=== PATIENT | male | born 1960 | race Caucasian/White ===

== ENCOUNTER → 2016-11-01 | Outpatient (CLI) | payer OTHER ==
--- NOTE | 2016-11-01 11:49 | RAD ---
Right lower extremity venous Doppler ultrasound History: Right lower extremity swelling since October 23, 2016. Right lower extremity erythema. Comparison: None. Procedure: Color Doppler, spectral Doppler, and grayscale images are obtained with and without compression in the area of the common femoral vein, superficial femoral vein - femoral vein junction, main femoral vein (superficial femoral vein) and popliteal vein. Veins of the proximal calf are also imaged. Findings: There is normal duplex flow, color flow and compressibility of all visualized vein segments. No evidence of deep venous thrombosis is present. Grayscale imaging demonstrates enlarged lymph nodes involving bilateral inguinal regions. Impression: 1. No evidence of right lower extremity deep venous thrombosis. 2. Bilateral inguinal lymphadenopathy, nonspecific. These might be reactive. Recommend clinical correlation.
== END | disposition home or self-care (01) ==
LOC: US 10:15
PROVIDERS: ATTEND Physician Assistant
DX: R59.1 Generalized enlarged lymph nodes (principal); R60.0 Localized edema; M79.89 Other specified soft tissue disorders
CPT/HCPCS: 93971

== ENCOUNTER → 2016-11-29 | Outpatient (CLI) | payer OTHER ==
[2016-11-29 08:27] LABS: ALBUMIN 3.2 g/dL (3.4-5.0); ALBUMIN/GLOBULIN RATIO 0.9 (1.0-1.7); CALCIUM 8.4 mg/dL (8.5-10.1); CREATININE 1.1 mg/dL (0.7-1.3); POTASSIUM 3.8 mmol/L (3.5-5.1); TOTAL PROTEIN 6.9 g/dL (6.4-8.2)
--- NOTE | 2016-11-29 14:11 | CARD ---
APPROVED REPORT EXAM: Two-dimensional and M-mode echocardiogram with Doppler and color Doppler. Other Information Quality : FairHR: 72bpm Rhythm : NSR INDICATION Lower extremity edema. RISK FACTORS Obesity Smoking 2D DIMENSIONS RVDd4.1 (2.9-3.5cm)Left Atrium(2D)4.1 (1.6-4.0cm) IVSd0.9 (0.7-1.1cm)Aortic Root(2D)4.1 (2.0-3.7cm) LVDd5.4 (3.9-5.9cm)LVOT Diameter2.5 (1.8-2.4cm) PWd1.0 (0.7-1.1cm)LVDs3.1 (2.5-4.0cm) FS (%) 43.1 %SV105.6 ml LVEF(%)73.7 (>50%) Aortic Valve AoV Peak Tucker.99.7cm/sAoV VTI20.6cm AO Peak GR.4.0mmHgLVOT Peak Tucker.85.0cm/s LVOT VTI 19.07cmAO Mean GR.2mmHg DOMINIQUE (VMAX)4.49ej3JAH (VTI)4.66cm2 Mitral Valve MV E Ctwrmusc60.3cm/sMV E Peak Gr.2mmHg MV DECEL [id number] A Hruaxxea58.8cm/s MV E Mean Gr.1mmHgE/A Ratio0.8 MV A Arjtrcsb894id Pulmonary Valve PV Peak Hebgslcv66.4cm/sPV Peak Grad.2mmHg Tricuspid Valve TR P. Xbhokrir209sr/sTR Peak Gr.29mmHg Pulmonary Vein S1 Axlqlxaq60.1cm/sD2 Dsqrgkfb86.7cm/s LEFT VENTRICLE The left ventricle is normal size. There is normal left ventricular wall thickness. The left ventricu lar systolic function is normal and the ejection fraction is within normal range. The Ejection Fracti on is 55-60%. There is normal LV segmental wall motion. Transmitral Doppler flow pattern is Grade I-a bnormal relaxation pattern. No left ventricle thrombus noted on this study. RIGHT VENTRICLE The right ventricle is mildly dilated. There is normal right ventricular wall thickness. The right ve ntricular systolic function is normal. ATRIA The left atrium is mildly dilated. The right atrium is mildly dilated. The interatrial septum is inta ct with no evidence for an atrial septal defect or patent foramen ovale as noted on 2-D or Doppler im aging. AORTIC VALVE The aortic valve is mildly sclerotic. The aortic valve is trileaflet. Doppler and Color Flow revealed no significant aortic regurgitation. There is no significant aortic valvular stenosis. MITRAL VALVE Mitral annular calcification is mild. The mitral valve leaflets are thickened. There is no evidence o f mitral valve prolapse. There is no mitral valve stenosis. Doppler and Color Flow revealed no mitral valve regurgitation noted. TRICUSPID VALVE Doppler and Color Flow revealed mild tricuspid regurgitation. The pulmonary artery systolic pressure is estimated at 32 mmHg. PULMONIC VALVE Doppler and Color Flow revealed no pulmonic valvular regurgitation. There is no pulmonic valvular hodan nosis. GREAT VESSELS The aortic root is mildly enlarged. The ascending aorta is normal in size. The pulmonary artery is no rmal. The IVC is normal in size and collapses >50% with inspiration. PERICARDIAL EFFUSION There is no evidence of significant pericardial effusion. Critical Notification Critical Value: No <Conclusion> The left ventricular systolic function is normal and the ejection fraction is within normal range. Th e Ejection Fraction is 55-60%. There is normal LV segmental wall motion.
--- NOTE | 2016-11-29 16:03 | RAD ---
APPROVED REPORT Patient Location : OUT-PATIENT Indications August scale images of the right and left greater and lesser saphenous veins were obtained. On limited imaging there is no evidence of thrombus. The right great saphenous vein measures 9 mm and does not show any evidence of reflux. The left great saphenous vein measures 9.3 mm and does not show any evidence of reflux. The bilateral lesser saphen ous veins do not show any evidence of reflux. Critical Notification Critical Value: No <Conclusion> Negative for reflux in the bilateral greater and lesser saphenous veins.
== END | disposition home or self-care (01) ==
LOC: ECHO 07:43
PROVIDERS: ATTEND Internal Medicine Cardiovascular Disease
DX: I50.31 Acute diastolic (congestive) heart failure (principal); M79.89 Other specified soft tissue disorders; I07.1 Rheumatic tricuspid insufficiency
CPT/HCPCS: 36415; 80053; 93306; 93970

== ENCOUNTER → 2017-04-10 | Outpatient (CLI) | payer OTHER ==
--- NOTE | 2017-04-10 17:23 | RAD ---
Right leg venous Doppler study: Clinical indications: Right leg swelling and pain. Findings: Duplex sonography (including byrnes scale evaluation and color flow and waveform spectral analysis) of the proximal aspect of the greater saphenous vein and proximal aspect of the profunda femoral vein and the entire length of the common femoral and superficial femoral and popliteal veins and the tibioperoneal trunk and the proximal aspect of the posterior tibial and peroneal veins of the right leg was performed. Normal compressibility, augmentation of color Doppler flow after calf compression, and respiratory variation of Doppler flow is seen. Thus, there are no sonographic findings of deep venous thrombosis within these veins. Impression: There are no sonographic findings of deep venous thrombosis within the veins discussed above of the right lower extremity. There is a 6.2 centimeter in length right groin lymph node. Recommend clinical correlation and follow-up. Enlarged lymph nodes or seen on a previous right lower extremity venous duplex examination dated November 01, 2016. The largest lymph node at that time measured 5.2 cm. This could be secondary to cellulitis. However, lymphoma has not been excluded.
[2017-04-10 18:01] LABS: ALBUMIN 3.1 g/dL (3.4-5.0); ALBUMIN/GLOBULIN RATIO 0.7 (1.0-1.7); CREATININE 1.1 mg/dL (0.7-1.3); TOTAL BILIRUBIN 1.4 mg/dL (0.2-1.0); TOTAL PROTEIN 7.3 g/dL (6.4-8.2)
[2017-04-10 18:42] LABS: BASO # 0.6 x10^3/uL (0.0-0.2); BASO % 5 % (0-3); EOS # 0.2 x10^3/uL (0.0-0.7); EOS % 1 % (0-3); HEMATOCRIT 46.3 % (39.0-53.0); HEMOGLOBIN 15.8 g/dL (13.0-17.5); LYMPH # 1.3 x10^3/uL (1.0-4.8); LYMPH % 10 % (24-48); MEAN CORPUSCULAR HEMOGLOBIN 34 pg (25-35); MEAN CORPUSCULAR HGB CONC 34 g/dL (31-37); MEAN CORPUSCULAR VOLUME 101 fL (79-100); MONO # 1.8 x10^3/uL (0.0-1.1); MONO % 14 % (0-9); NEUT % 70 % (31-73); PLATELET COUNT 225 x10^3/uL (140-400); RED BLOOD COUNT 4.59 x10^6/uL (4.30-5.70); RED CELL DISTRIBUTION WIDTH 12.8 % (11.5-14.5); WHITE BLOOD COUNT 12.8 x10^3/uL (4.0-11.0)
[2017-04-10 20:24] LABS: SEDIMENTATION RATE 46 (0-15)
== END | disposition home or self-care (01) ==
LOC: US 16:34
PROVIDERS: ATTEND Nurse Practitioner Family
DX: M79.604 Pain in right leg (principal); R60.0 Localized edema; M79.89 Other specified soft tissue disorders
CPT/HCPCS: 36415; 80053; 85025; 85651; 93971

== ENCOUNTER → 2017-04-13 | Outpatient (CLI) | payer OTHER ==
[~2017-04-13] MED LIST: IOHEXOL 300 MG/ML 75 ML VIAL. IV ONE
--- NOTE | 2017-04-13 16:17 | RAD ---
EXAM: CT right leg with contrast. HISTORY: Cellulitis, fluid collections in right calf. Lymphadenopathy. TECHNIQUE: CT of the right lower chest was performed after intravenous contrast. COMPARISON: Ultrasound 04/10/2017. FINDINGS: There is extensive subcutaneous edema beginning along the distal thigh and becoming severe throughout the right calf and visualized foot. No discrete fluid collection is identified. There is no clear involvement of deeper compartments. Small scattered calcifications along the scan likely represent tiny phleboliths or other benign soft tissue calcifications. Enlarged right inguinal lymph nodes are likely reactive in this setting. The largest measures 4.0 x 2.0 cm. The deep veins appear patent by this technique. Bone windows reveal no suspicious lesions. A lucent focus within the right ischium proximally most likely represents a hemangioma. IMPRESSION: 1. Extensive subcutaneous edema extending from the distal thigh through the visualized foot. No discrete fluid collection by CT. 2. Right inguinal lymphadenopathy is likely reactive in the setting. One or more of the following individualized dose reduction techniques were utilized for this examination: 1. Automated exposure control. 2. Adjustment of the mA and/or kV according to patient size. 3. Use of iterative reconstruction technique.
== END | disposition home or self-care (01) ==
LOC: CT 15:11
PROVIDERS: ATTEND Family Medicine
DX: L03.115 Cellulitis of right lower limb (principal); R59.0 Localized enlarged lymph nodes; R60.9 Edema, unspecified
CPT/HCPCS: 73701; Q9967

== ENCOUNTER → 2017-08-01 | Outpatient (CLI) | payer OTHER ==
[2017-08-01 16:37] LABS: ALBUMIN 3.4 g/dL (3.4-5.0); ALBUMIN/GLOBULIN RATIO 0.8 (1.0-1.7); CALCIUM 9.1 mg/dL (8.5-10.1); CREATININE 1.2 mg/dL (0.7-1.3); GFR 62.4; POTASSIUM 3.6 mmol/L (3.5-5.1); TOTAL BILIRUBIN 1.1 mg/dL (0.2-1.0); TOTAL PROTEIN 7.7 g/dL (6.4-8.2)
== END | disposition home or self-care (01) ==
LOC: LAB 15:20
PROVIDERS: ATTEND Internal Medicine Cardiovascular Disease
DX: I50.31 Acute diastolic (congestive) heart failure (principal)
CPT/HCPCS: 36415; 80053; 83880

== ENCOUNTER → 2017-10-11 | Outpatient (CLI) | payer OTHER ==
[2017-10-11 16:23] LABS: CALCIUM 8.6 mg/dL (8.5-10.1); CREATININE 1.1 mg/dL (0.7-1.3); GFR 68.8
[2017-10-11 16:27] LABS: POTASSIUM 2.8 mmol/L (3.5-5.1)
== END | disposition home or self-care (01) ==
LOC: LAB 15:43
PROVIDERS: ATTEND Internal Medicine Cardiovascular Disease
DX: I87.2 Venous insufficiency (chronic) (peripheral) (principal); I50.31 Acute diastolic (congestive) heart failure
CPT/HCPCS: 36415; 80048

== ENCOUNTER → 2017-10-16 | Outpatient (CLI) | payer OTHER ==
[2017-10-16 16:22] LABS: CALCIUM 8.7 mg/dL (8.5-10.1); CREATININE 1.2 mg/dL (0.7-1.3); GFR 62.2; POTASSIUM 3.2 mmol/L (3.5-5.1)
== END | disposition home or self-care (01) ==
LOC: LAB 15:34
PROVIDERS: ATTEND Internal Medicine Cardiovascular Disease
DX: E87.6 Hypokalemia (principal)
CPT/HCPCS: 36415; 80048

== ENCOUNTER → 2018-02-21 | Outpatient (CLI) | payer OTHER ==
[2018-02-21 14:24] LABS: CREATININE 1.1 mg/dL (0.7-1.3); GFR 68.8; POTASSIUM 3.9 mmol/L (3.5-5.1)
== END | disposition home or self-care (01) ==
LOC: LAB 13:17
PROVIDERS: ATTEND Internal Medicine Cardiovascular Disease
DX: I87.2 Venous insufficiency (chronic) (peripheral) (principal); E87.6 Hypokalemia
CPT/HCPCS: 36415; 80048; 83880

== ENCOUNTER → 2021-03-09 | Outpatient (CLI) | payer BC, OTHER ==
--- NOTE | 2021-03-09 09:23 | RAD ---
EXAM: Abdomen sonogram. HISTORY: Abnormal liver enzyme laboratory values. TECHNIQUE: Sonographic imaging of the abdomen was performed. COMPARISON: None. FINDINGS: The liver is enlarged. There is hepatic steatosis. No focal hepatic lesion is seen. The com mon bile duct is normal in caliber. There is cholelithiasis. There is gallbladder wall thickening. Th e kidneys are normal in size. There is no solid or cystic renal lesion or hydronephrosis. The spleen is mildly enlarged. The pancreas, aorta and vena cava are obscured due to bowel gas and body habitus. IMPRESSION: 1. Hepatomegaly and hepatic steatosis. 2. Cholelithiasis. There is gallbladder wall thickening suggesting superimposed cystitis. This can al so be seen with intrinsic liver disease. Correlate with symptomatology. 3. Mild splenomegaly. 4. Obscured midline structures due to bowel gas and body habitus. Electronically signed by: Juju Rae MD (03/09/2021 9:21 AM) [id number]
--- NOTE | 2021-03-09 09:41 | RAD ---
EXAMINATION: CT chest without IV contrast INDICATION:60 years, Male, smoker for 45 years. COMPARISON: None TECHNIQUE: Low-dose CT scan of the chest with 3-D MIP coronal and sagittal reconstructions was acquir ed. Exposure: One or more of the following individualized dose reduction techniques were utilized for [facility] s examination: 1. Automated exposure control 2. Adjustment of the mA and/or kV according to patient size 3. Use of iterative reconstruction technique. Lung-RADS assessment categories: 0: Incomplete. Additional lung cancer screening CT images and/or comparison to prior chest CT examina tions is needed. 1: Negative. Continue annual screening with low dose CT (LDCT) in 12 months. 2: Benign appearance or behavior. Continue annual screening with LDCT in 12 months. 3: Probably benign. 6 month follow-up LDCT recommended. 4A: Suspicious. 3 month LDCT follow up, PET/CT may be used when there is ? 8mm (? 268 mm3) solid comp onent. 4B or 4X: Very Suspicious. Chest CT with or without contrast, PET/CT, and/or biopsy recommended. PET/ CT may be used when there is ? 8mm (? 268 mm3) solid component. For new large nodules that develop on an annual repeat screening CT, a 1 month LDCT may be recommended to address potentially infectious o r inflammatory conditions. Modifiers: S: Clinically significant or potentially clinically significant findings (non-lung cancer). Exposure: One or more of the following individualized dose reduction techniques were utilized for [facility] s examination: 1. Automated exposure control 2. Adjustment of the mA and/or kV according to patient size 3. Use of iterative reconstruction technique. FINDINGS: LUNGS/PLEURA: The pulmonary parenchyma appears within normal limits. No suspicious pulmonary nodules are visualized. No pleural effusion or focal pleural lesion. MEDIASTINUM: No pathologic mediastinal or hilar adenopathy. The thoracic aorta and pulmonary arteries are normal in caliber. The heart is normal in size. No pericardial effusion. Moderate coronary arter y atherosclerotic calcifications The visualized thyroid and the esophagus are unremarkable. AXILLA/SOFT TISSUE: No supraclavicular or axillary adenopathy. Regional soft tissues are within timoteo l limits. UPPER ABDOMEN: The visualized upper abdomen appears unremarkable, within the limitation of the exam. BONES: No evidence of acute fractures or aggressive osseous lesions. Excessive kyphosis of the thorac ic spine with chronic mild anterior compression fracture of T6, T7 and T8 vertebral bodies. Chronic d eformity of the lateral right fifth and sixth ribs. IMPRESSION: 1. Lung-RADS 1: Negative. Continue annual screening with low dose CT (LDCT) in 12 months. 2. Moderate coronary artery atherosclerotic calcifications. Electronically signed by: Payal Gonzalez MD (03/09/2021 9:39 AM) [id number]
== END ==
LOC: US 08:22
PROVIDERS: ATTEND Family Medicine
DX: Z12.2 Encounter for screening for malignant neoplasm of respiratory organs (principal); K80.20 Calculus of gallbladder without cholecystitis without obstruction; K76.0 Fatty (change of) liver, not elsewhere classified; R16.2 Hepatomegaly with splenomegaly, not elsewhere classified; R94.5 Abnormal results of liver function studies; I25.10 Atherosclerotic heart disease of native coronary artery without angina pectoris; Z72.0 Tobacco use
CPT/HCPCS: 71271; 76700

== ENCOUNTER → 2021-04-20 | Outpatient (CLI) | payer BC ==
[~2021-04-20] MED LIST changes: +IOHEXOL 240 MG/ML 50ML VIAL. ONE; +IOHEXOL 240 MG/ML 50ML VIAL. PO ONE
--- NOTE | 2021-04-20 09:55 | RAD ---
CT ABDOMEN+PELVIS W History: Left lower quadrant abdominal pain, diarrhea. Umbilical hernia repair one week ago. Comparison: CT chest 03/09/2021 Technique: CT of the abdomen and pelvis with oral and intravenous contrast. Findings: There is a new large left lower lobe airspace consolidation and partial consolidation in the left upp er lobe. Coronary artery calcifications. No pleural effusion. The liver is unremarkable. Calcified 1.9 cm gallbladder fundus stone. No biliary ductal dilatation. T he pancreas and adrenal glands are unremarkable. The spleen is at the upper limits of normal for size . A subcentimeter hypoattenuation in the right renal upper pole is too small to characterize, likely renal cyst. No hydronephrosis or nephrolithiasis. Mild left renal perinephric fat stranding. Mild thi ckening of the bladder wall is likely due to under distention. The prostate is not enlarged. Central prostatic calcifications. The stomach and small bowel are unremarkable. Contrast reaches the distal ileum. The appendix is norm al. The colon is within normal limits. Aortoiliac atherosclerotic calcification without aneurysm. The re are prominent retroperitoneal lymph nodes particularly along the left greater than right iliac jillian ins, includin cm short axis right external iliac lymph node (axial 71), 8 mm short axis left inte rnal inguinal ring lymph node (axial 79), 1 cm right external iliac lymph node (axial 70), and bilate ral 1.3 cm inguinal lymph nodes. Large partially visualized left inguinal hernia containing fat and small to moderate right fat-contai rohan inguinal hernia. Degenerative changes of the spine without acute osseous abnormality. Healed rig ht-sided rib fractures. Impression: 1. Large left lower lobe and small partially visualized left upper lobe airspace consolidations may represent pneumonia or aspiration. These are new from March comparison. 2. Large left and small to moderate right fat-containing inguinal hernias. 3. Prominent retroperitoneal and inguinal lymph nodes measuring up to 1 cm in the pelvis and 1.3 cm in the inguinal stations. Correlate for infectious or lymphoproliferative disorders. Consider tissue sampling or 3 month follow-up CT. ------ Exposure: One or more of the following individualized dose reduction techniques were utilized for thi s examination: 1. Automated exposure control 2. Adjustment of the mA and/or kV according to patient size 3. Use of iterative reconstruction technique. Electronically signed by: Mika Quick MD (04/20/2021 9:52 AM) [id number]
== END ==
LOC: RAD 08:10
PROVIDERS: ATTEND Family Medicine
DX: K40.20 Bilateral inguinal hernia, without obstruction or gangrene, not specified as recurrent (principal); K80.20 Calculus of gallbladder without cholecystitis without obstruction; I25.10 Atherosclerotic heart disease of native coronary artery without angina pectoris; R10.32 Left lower quadrant pain
CPT/HCPCS: 74177; Q9967

== ENCOUNTER → 2021-04-22 | Outpatient (CLI) | payer BC ==
--- NOTE | 2021-04-22 12:42 | RAD ---
EXAM: Chest, 2 views. HISTORY: Cough. COMPARISON: 04/20/2021. FINDINGS: 2 views of the chest are obtained. There is bilateral lower lobe interstitial infiltrate. N o pleural effusion or pneumothorax is seen. The heart is normal in size. IMPRESSION: Bilateral lower lobe interstitial infiltrate, not appreciably changed compared to the angelic or exam when allowing for differences in imaging modality. Electronically signed by: Juju Rae MD (04/22/2021 12:40 PM) [id number]
== END ==
LOC: RAD 12:22
PROVIDERS: ATTEND Family Medicine
DX: R91.8 Other nonspecific abnormal finding of lung field (principal); J69.0 Pneumonitis due to inhalation of food and vomit
CPT/HCPCS: 71046

== ENCOUNTER → 2021-08-31 | Outpatient (CLI) | payer BC ==
--- NOTE | 2021-08-31 12:29 | RAD ---
MR#: [id number] Date of Study: 08/31/2021 Ordering Physician: SARAH ROGERS, Referring Physician: SARAH ROGERS, Tech: Lizzie Sullivan RVT, [facility] APPROVED REPORT Patient Location : OUT-PATIENT Indications Stasis Disease Lower Extremity Edema : Skin Changes Grayscale images of the saphenofemoral junctions are notable for bilateral lymphadenopathy on the rig ht measuring 6.4 x 4.2 x 1.7 cm and on the left measuring 4.0 x 4.5 x 1.6 cm Limited grayscale images of the bilateral saphenofemoral venous junction does not reveal any obvious thrombus. The right great saphenous vein measures 5 mm and has no evidence of reflux. The left grea t saphenous vein measures 7 mm and has no evidence of reflux. The bilateral lesser saphenous veins also do not show any evidence of reflux Greater Saphenous Veins (GSV) Significant venous relux noted in the RIGHT GSV at the following levels : Superficial Femoral Junctio n Significant venous relux noted in the LEFT GSV at the following levels : Superficial Femoral Junction Lesser Saphenous Veins (LSV) Right Thigh extension noted : Yes Critical Notification Critical Value: No <Conclusion> 1. Negative for reflux in the bilateral greater and lesser saphenous veins 2. Abnormal bilaterally enlarged lymphadenopathy in the inguinal region, recommend further evaluatio n and clinical correlation. Signed by : Sarah Rogers, Electronically Approved : 08/31/2021 12:28:42
--- NOTE | 2021-09-16 08:51 | CARD ---
MR#: [id number] Account#: Date of Study: 08/31/2021 Ordering Physician: Kendall: Jean-Claude Matias RDCS APPROVED REPORT EXAM: Two-dimensional and M-mode echocardiogram with Doppler and color Doppler. Other Information Quality : FairHR: 82bpm Rhythm : NSR INDICATION Congestive Heart Failure RISK FACTORS Hypertension Obesity Hyperlipidemia Smoking 2D DIMENSIONS RVDd6.3 (2.9-3.5cm)Left Atrium(2D)4.3 (1.6-4.0cm) IVSd1.2 (0.7-1.1cm)Aortic Root(2D)3.9 (2.0-3.7cm) LVDd4.5 (3.9-5.9cm)LVOT Diameter2.3 (1.8-2.4cm) PWd1.2 (0.7-1.1cm)LA Rrgfdo042 (18-58mL) LVDs2.8 (2.5-4.0cm)FS (%) 37.5 % SV61.5 mlLVEF(%)67.7 (>50%) Aortic Valve AoV Peak Tucker.110.4cm/sAoV VTI22.2cm AO Peak GR.4.9mmHgLVOT Peak Tucker.85.1cm/s LVOT VTI 15.70cmAO Mean GR.3mmHg DOMINIQUE (VMAX)3.81wl9FVO (VTI)3.04cm2 Mitral Valve MV E Fmdsktnu96.3cm/sMV E Peak Gr.4mmHg MV DECEL [id number] A Cyesqfrb84.6cm/s MV E Mean Gr.2mmHgE/A Ratio0.8 Pulmonary Valve PV Peak Wfqoubzb99.6cm/sPV Peak Grad.2mmHg Tricuspid Valve TR P. Jraonsoy102nj/sTR Peak Gr.39mmHg Pulmonary Vein S1 Thcoxwfd48.7cm/sD2 Krftdnpu03.9cm/s LEFT VENTRICLE The left ventricle is normal size. There is mild concentric left ventricular hypertrophy. The left ve ntricular systolic function is normal and the ejection fraction is within normal range. EF 55% There is normal LV segmental wall motion. Transmitral Doppler flow pattern is Grade I-abnormal relaxation p attern. No left ventricle thrombus noted on this study. There is no ventricular septal defect visuali zed. There is no left ventricular aneurysm. There is no mass noted in the left ventricle. RIGHT VENTRICLE The right ventricle is moderately dilated. There is normal right ventricular wall thickness. The righ t ventricular systolic function is normal. ATRIA The left atrium is mildly dilated. The right atrium is moderately dilated. The interatrial septum is intact with no evidence for an atrial septal defect or patent foramen ovale as noted on 2-D or Dopple r imaging. AORTIC VALVE The aortic valve is thickened but opens well. Doppler and Color Flow revealed no significant aortic r egurgitation. There is no significant aortic valvular stenosis. There is no aortic valvular vegetatio n. MITRAL VALVE The mitral valve is normal in structure and function. There is no evidence of mitral valve prolapse. There is no mitral valve stenosis. TRICUSPID VALVE The tricuspid valve is normal in structure and function. Doppler and Color Flow revealed trace tricus pid regurgitation. The PA pressure was estimated at 46 mmHg. There is no tricuspid valve prolapse or vegetation. There is no tricuspid valve stenosis. PULMONIC VALVE Doppler and Color Flow revealed no pulmonic valvular regurgitation. There is no pulmonic valvular hodan nosis. GREAT VESSELS The aortic root is normal in size. The ascending aorta is normal in size. The IVC is mildly enlarged in size and collapses >50% with inspiration. PERICARDIAL EFFUSION There is no pleural effusion. There is no evidence of significant pericardial effusion. Critical Notification Critical Value: No <Conclusion> The left ventricular systolic function is normal and the ejection fraction is within normal range. EF 55% There is normal LV segmental wall motion. The right ventricle is moderately dilated. Doppler and Color Flow revealed trace tricuspid regurgitation. The PA pressure was estimated at 46 mm Hg. Signed by : Ck Rogers, Electronically Approved : 08/31/2021 13:50:40
== END ==
LOC: ECHO 07:56
PROVIDERS: ATTEND Internal Medicine Cardiovascular Disease
DX: I51.7 Cardiomegaly (principal); I35.1 Nonrheumatic aortic (valve) insufficiency; R59.1 Generalized enlarged lymph nodes; I83.10 Varicose veins of unspecified lower extremity with inflammation
CPT/HCPCS: 93306; 93970

== ENCOUNTER → 2021-09-09 | Outpatient (CLI) | payer BC ==
[~2021-09-09] MED LIST changes: -IOHEXOL 240 MG/ML 50ML VIAL. ONE; -IOHEXOL 240 MG/ML 50ML VIAL. PO ONE
--- NOTE | 2021-09-09 11:24 | RAD ---
Exam Date: 09/09/2021 8:[address] ABDOMEN+PELVIS W Indication: Reason: / Spl. Instructions: / History: . TECHNIQUE: CT examination of the abdomen and pelvis was performed following the administration of no nionic intravenous contrast. One or more of the following dose reduction techniques were utilized: *Automated exposure control (AEC) *Adjustment of mA and/or kV according to patient size *Use of iterative reconstruction technique *CT scan done according to ALARA, or ALARA/IMAGE GENTLY FINDINGS: The visualized lung bases are clear. There is a calcified gallstone. The liver, gallbladder, spleen, pancreas, adrenal glands and kidneys are otherwise normal. Urinary bladder is suboptimally evaluated due to underdistention, though there is suggestion of diffu se mural thickening. There is no bowel obstruction or inflammation. The appendix is normal. There are small bilateral fa t-containing inguinal hernias, left larger than right. Mild atherosclerotic calcifications are seen. No ascites is seen. Borderline-enlarged bilateral pel steph sidewall and inguinal lymph nodes are similar when compared to the prior exam. Degenerative changes are seen in the spine. IMPRESSION: No evidence of acute intra-abdominal pathology. Borderline-enlarged bilateral pelvic sidewall and inguinal lymph nodes are similar compared to the pr ior exam. Appearance of mural thickening involving the urinary bladder could be related to underdistention, tho ugh bladder pathology is not excluded. This appears similar compared to the prior exam. Consider fu rther bladder workup if clinically indicated. Small bilateral fat-containing inguinal hernias, left larger than right. Electronically signed by: Oni Perez MD (09/09/2021 11:22 AM) [facility]
== END ==
LOC: CT 08:20
PROVIDERS: ATTEND Family Medicine
DX: K80.20 Calculus of gallbladder without cholecystitis without obstruction (principal); K40.90 Unilateral inguinal hernia, without obstruction or gangrene, not specified as recurrent; R59.0 Localized enlarged lymph nodes; M47.817 Spondylosis without myelopathy or radiculopathy, lumbosacral region
CPT/HCPCS: 74177; Q9967